=== PATIENT | female | born 1940 | race Caucasian/White ===

== ENCOUNTER 2025-04-15 14:48 | Emergency (ER) | payer OTHER, SELFPAY ==
--- NOTE | 2025-04-15 17:30 | ED.MUSCINJ ---
HPI-Injury
General
Chief Complaint: Fall
Source: patient
Exam Limitations: none
Time Seen by Provider: 04/15/25 16:56
History of Present Illness-Injury
Initial Injury comments:
84-year-old female not on blood thinners presents after trip and fall. She fell forward hitting the left side of her head on the pavement. No loss conscious. She denies significant headache or neck pain. She notes increasing swelling around the
left eye since then.
Phy Exam
Physical Exam
Physical Exam:
General: Well-appearing female no acute distress
HEENT: Normocephalic abrasion with hematoma noted to the left forehead with periorbital ecchymosis of the left eye. Pupils equal round reactive to light extract motions are intact no sign
Neurologic exam: Alert and oriented normal gait conversing appropriately
Musculoskeletal exam: Mild diffuse tenderness about the cervical spine
Injury Course
Orders/Labs/Results
Orders:
Orders
04/15/25 17:29
CT Cervical Spine W/o Iv Contr Urgent
Comment:
Reason For Exam: fall
CT Head W/o Iv Contrast Urgent
Comment:
Reason For Exam: fall
MDM/Problems Addressed
Differential Diagnosis Includes:
Fall with head strike. Consider hematoma versus fracture versus intracranial hemorrhage. CT head and cervical spine pending
*Pulse Oximetry
SaO2: 98
Oxygen Mode of Delivery: Room air
Patient hypoxic: no
*Critical Care Note
Total Time (30-74mins, 75-104mins- exclusive of procedures): Not Applicable
Update Note
Update Note:
CT head and cervical spine negative for acute traumatic injury. Patient reassured. Stable for discharge
ED Attending Note
-
Portions of this chart may have been created with voice recognition software.� Occasional wrong word or��sound alike� substitutions may have occurred due to the inherent limitations of voice recognition software.
Discharge Plan
Departure
Patient Disposition: Home (Routine Discharge)
Date of Disposition: 04/15/25
Time of Disposition: 19:50
Patient with high blood pressure during this ER visit?: No
Discharge Problem:
Contusion
Instructions: Contusion (DC)
Referrals:
Sergio Little MD [Family Provider, [facility]]
Activity Restrictions/Additional Instructions:
You may ice for swelling. Take Tylenol for pain. Return if worse otherwise follow-up with your doctor
Interventions
Interventions:
*Risk Screen - Suicide Last Done: 04/15/25 14:50
*General Assessment Last Done: 04/15/25 19:26
*Neglect/Abuse Screening Last Done: 04/15/25 14:50
*ED- Fall Risk Assessment Last Done: 04/15/25 19:26
*ED COVID-19 Vaccine History Last Done: 04/15/25 19:27
ED-Musculoskeletal Assessment Last Done: 04/15/25 18:15
ED- Neurological Assessment Last Done: 04/15/25 18:15
Discharge Date and Time
Print Language: SAO TOMEAN
== END 2025-04-15 20:12 | disposition home or self-care (01) ==
LOC: EMR 14:48
PROVIDERS: EMERGENCY PHYSICIAN Emergency Medicine; FAMILY PHYSICIAN Family Medicine
DX: S00.83XA Contusion of other part of head, initial encounter (principal); W01.0XXA Fall on same level from slipping, tripping and stumbling without subsequent striking against object, initial encounter
CPT/HCPCS: 99285; 70450; 72125